=== PATIENT | female | born 1980 | race Caucasian/White ===

== ENCOUNTER 2018-06-23 16:14 | Emergency (ER) | payer BC ==
[~2018-06-23] VITALS: Ht 162.6 cm; Wt 81.0 kg
[2018-06-23] MEDS ORDERED: IBUPROFEN 600MG TABLET PO ONE (17:45)
[2018-06-23 18:27] VITALS: BP 121/65
== END 2018-06-23 18:27 | disposition home or self-care (01) ==
LOC: ER 16:14
DX: R51 Headache (principal); M54.2 Cervicalgia; V49.49XA Driver injured in collision with other motor vehicles in traffic accident, initial encounter; Y93.89 Activity, other specified; Y92.89 Other specified places as the place of occurrence of the external cause; Y99.8 Other external cause status
CPT/HCPCS: 81025; 99282